=== PATIENT | male | born 1935 | race Caucasian/White ===

== ENCOUNTER 2020-01-22 15:45 | Inpatient (IN) | payer OTHER, MEDICAID, SELFPAY ==
[~2020-01-22] VITALS: Ht 172.7 cm; Wt 81.6 kg
[2020-01-22 16:20] VITALS: BP 130/71
--- NOTE | 2020-01-22 16:40 | NUR ---
pt taken to bed 4
--- NOTE | 2020-01-22 16:42 | NUR ---
pt placed on pulse ox and 3 lead ecg
--- NOTE | 2020-01-22 16:57 | NUR ---
dr. aranda at bedside.
--- NOTE | 2020-01-22 17:05 | NUR ---
84 Y/M PRESENTS TO ED WITH GRANDSON. PER GRANDSON PT HAS BEEN FATIGUED, REPORTS DECREASED APPETITE AND SOB X 2 DAY. PT HAS MILD COUGH AT BASELINE, DENIES FEVER OR COVID POSITIVE CONTACTS. NO PAIN. PT RR EVEN AND UNLABORED. PT SATTING 93% ON RA, PT PLACED ON 4L NC AND O2-95%. ABD SOFT, BS ACTIVE X 4. HX- CVA, HTN, HLD fatigue, deacreased appetite.
--- NOTE | 2020-01-22 17:19 | NUR ---
FLU, RSV AND NOVEL ANDERSON SWAB COLLECTED.
[2020-01-22 17:45] LABS: BASOPHILS # (AUTO) 0.1 K/uL (0.00-0.22); BASOPHILS % (AUTO) 1.2 % (0.0-2.0); HEMATOCRIT 45.3 % (36-52); HEMOGLOBIN 15.2 g/dL (12.0-18.0); LYMPHOCYTES # (AUTO) 0.8 K/uL (2.0-11.5); LYMPHOCYTES % (AUTO) 6.8 % (20.5-51.1); MEAN CORPUSCULAR HEMOGLOBIN 30 pg (27-31); MEAN CORPUSCULAR HGB CONC 34 g/dL (33-37); MEAN CORPUSCULAR VOLUME 90.3 fL (80-94); MONOCYTES # (AUTO) 1.3 K/uL (0.8-1.0); MONOCYTES % (AUTO) 10.5 % (1.7-9.3); NEUTROPHILS # (AUTO) 9.8 K/uL (1.8-7.7); NEUTROPHILS % (AUTO) 81.5 % (42.2-75.2); PLATELET COUNT (AUTO) 205 K/uL (140-450); RED BLOOD CELL COUNT(AUTO) 5.02 MIL/uL (4.20-6.10); RED CELL DISTRIBUTION WIDTH 13.8 % (11.6-13.7)
[2020-01-22 17:47] LABS: ALBUMIN 3.3 g/dL (3.4-5.0); ANION GAP 20.2 (8-16); ASPARTATE AMINOTRANSFERASE 19 U/L (15-37); CARBON DIOXIDE 20.1 mmol/L (21-32); CHLORIDE 104 mmol/L (98-107); CREATININE 2.1 mg/dL (0.6-1.3); GLUCOSE 138 mg/dL (74-106); POTASSIUM 4.3 mmol/L (3.5-5.1); SODIUM SERUM 140 mmol/L (136-145); TOTAL BILIRUBIN 1.2 mg/dL (0.0-1.0); UREA NITROGEN, BLOOD 36 mg/dL (7-18)
[2020-01-22 17:53] LABS: RSV NEGATIVE (NEGATIVE)
[2020-01-22 17:54] LABS: PROTHROMBIN TIME 10.9 secs (10.8-13.4)
--- NOTE | 2020-01-22 18:07 | NUR ---
URINE COLLECTED AND GIVEN TO TUGBOAT CAPTAIN.
--- NOTE | 2020-01-22 18:11 | NUR ---
PT REPOSITIONED IN BED, ALL NEEDS MET AT THIS TIME.
[2020-01-22] MEDS ORDERED: OSELTAMIVIR PHOSPHATE 75 MG CAP PO ONE (18:20)
[2020-01-22 18:24] LABS: LACTATE DEHYDROGENASE 188 U/L (85-227)
[2020-01-22 18:25] LABS: APPEARANCE,URINE SL CLOUDY (CLEAR); BILIRUBIN,URINE NEGATIVE (NEGATIVE); BLOOD, URINE 3+ (NEGATIVE); COLOR,URINE YELLOW (YELLOW); LEUKOCYTE ESTERASE ,URINE 3+ (NEGATIVE); NITRITE, URINE NEGATIVE (NEGATIVE); UGLUCOSE NEGATIVE (NEGATIVE)
--- NOTE | 2020-01-22 18:29 | NUR ---
RT AT BEDSIDE.
[2020-01-22] MEDS ORDERED: MORPHINE SULFATE 2 MG/ML SYR IVP PRN (18:30)
[2020-01-22] MEDS ORDERED: ACETAMINOPHEN 325 MG TAB PO PRN (18:30)
[2020-01-22] MEDS ORDERED: DOCUSATE SODIUM 100 MG GELCAP PO PRN (18:30)
[2020-01-22] MEDS ORDERED: HYDROcodone/APAP 5/325 MG 1 TAB TAB PO PRN (18:30)
[2020-01-22] MEDS ORDERED: ONDANSETRON 4 MG/2 ML VIAL IM/IVP PRN (18:30)
--- NOTE | 2020-01-22 19:11 | NUR ---
RECEIVED REPORT FROM CASS KUMAR
[2020-01-22 19:14] LABS: MAGNESIUM 1.9 mg/dL (1.8-2.4); PHOSPHORUS 2.3 mg/dL (2.5-4.9); THYROID STIMULATING HORMONE 2.86 uIU/mL (0.34-3.74)
[2020-01-22] MEDS ORDERED: [UNRECOGNIZED DRUG - CODE] PO (19:18)
[2020-01-22] MEDS ORDERED: POTA10CE85 PO (19:18)
[2020-01-22] MEDS: NACL 0.9% 1,000 ML IV SCH (19:18)
--- NOTE | 2020-01-22 19:19 | NUR ---
Pt report given to JOSÉ BLAND. Transfer of care at this time.
[2020-01-22] MEDS ORDERED: SIMV40TA1 PO (19:21)
[2020-01-22] MEDS ORDERED: FURO-572 PO (19:21)
[2020-01-22] MEDS ORDERED: TAMS0.4C96 PO (19:21)
[2020-01-22] MEDS ORDERED: AMLO10TA PO (19:21)
[2020-01-22] MEDS ORDERED: AZITHROMYCIN 500 MG in DEXTROSE 5% 250 ML IV SCH (19:25)
[2020-01-22 19:28] LABS: RBC,URINE 50-80 /HPF (0-5); WBC,URINE 16-25 (MOD) /HPF (0-5)
--- NOTE | 2020-01-22 20:26 | NUR ---
PT CURRENTLY TELE HOLD, PROVIDED PT WITH SANDWICH
[2020-01-22] MEDS ORDERED: SODIUM PHOS / POTASSIUM PHOS 1 PKT PDR PO SCH (20:50)
--- NOTE | 2020-01-23 00:50 | NUR ---
ADMITTED 84 Y/O MALE FROM E.. VIA [facility]. PATIENT IS AWAKE, ALERT. ENGLISH SPEAKING. ABLE TO MAKE NEEDS KNOWN. RESPIRATION EVEN AND UNLABORED. DENIES PAIN. ASSESSMENT DONE. NOTED LFA 20G. INTACT AND PATENT. MRSA SWAB DONE. V/S TAKEN. OBSERVED DROPLET PRECAUTION ISOLATION FOR R/O COVID 19. FALL RISK PROTOCOL IN PLACE. PLAN OF CARE WAS DISCUSSED. CALL LIGHT WITHIN REACH. WILL CONTINUE TO MONITOR.
--- NOTE | 2020-01-23 01:00 | NUR ---
Patient will be admitted to care of DR VALLEJO. Admited to TELE. Will go to room 116. Belongings list completed. Report to AZUL KUMAR.
[2020-01-23] MEDS ORDERED: cefTRIAXone 1,000 MG VIAL ONE (01:33)
[2020-01-23] MEDS: SIMVASTATIN 40 MG TAB PO SCH ×2 (01:44→20:04)
--- NOTE | 2020-01-23 02:00 | NUR ---
TRIED TO USE THE TIN WORKER PHONE TO TRANSLATE FAROESE TO TAMAZIGHT BUT THERE IS NO SIGNAL IN THE PATIENT'S ROOM. I WENT TO THE NURSES STATION TO CALL AGAIN AND I WALKED BACK TO PATIENT'S ROOM AND THE SIGNAL WAS CHOPPY ON THE HALLWAY. TRIED TO CONTACT THE NEXT OF KIN/RESPONSIBLE LIBERTARIAN ON THE PATIENT'S FACE SHEET BUT UNABLE TO CONTACT. CHARGE NURSE NUHA AWARE. BASED PATIENT'S HX ON MED. RECORD IN COMP.
[2020-01-23 04:00] VITALS: BP 142/65
--- NOTE | 2020-01-23 04:00 | NUR ---
V/S TAKEN AND RECORDED. KEPT CLEAN, DRY AND COMFORTABLE.
--- NOTE | 2020-01-23 07:00 | NUR ---
PATIENT IS IN STABLE CONDITION. NO DISTRESS NOTED. DENIES PAIN. NO SOB. WILL ENDORSE TO AM SHIFT RN FOR CONTINUITY OF CARE.
--- NOTE | 2020-01-23 07:25 | NUR ---
RECEIVED BEDSIDE SHIFT REPORT FRM HISTORY FACULTY MEMBER NURSE FOR CONTINUATION OF CARE.
[2020-01-23 08:00] VITALS: BP 145/71
[2020-01-23] MEDS ORDERED: COMMUNICATION ORDER MC SCH (09:00)
[2020-01-23] MEDS: POTASSIUM CHLORIDE 10 MEQ TABER PO SCH (09:00)
[2020-01-23] MEDS ORDERED: OSELTAMIVIR PHOSPHATE 75 MG CAP PO SCH (09:00)
--- NOTE | 2020-01-23 09:00 | NUR ---
TOLERATED MEDICATION PASS, RESTING IN BED, DENIES PAIN. AAOX4, EDUCATED LAV CREWMAN LIGHT, VERBALIZED UNDERSTANDING. WILL CONTINUE TO MONITOR
--- NOTE | 2020-01-23 09:25 | NUR ---
PATIENT HAS BEEN SCREENED AND CATEGORIZED MODERATE NUTRITION RISK. PATIENT WILL BE SEEN WITHIN 3-5 DAYS OF ADMISSION. 01/25/2020-01/27/[address]
[2020-01-23] MEDS: FUROSEMIDE 20 MG TAB PO SCH (09:51)
[2020-01-23] MEDS: amLODIPine 5 MG TAB PO SCH (09:51)
[2020-01-23] MEDS: LOSARTAN 50 MG TAB PO SCH (09:51)
[2020-01-23] MEDS: TAMSULOSIN 0.4 MG CAP PO SCH (09:51)
[2020-01-23] MEDS: NACL 0.9% 1,000 ML IV SCH (10:38)
[2020-01-23 10:40] LABS: BASOPHILS % (AUTO) 0.2 % (0.0-2.0); HEMATOCRIT 41.9 % (36-52); LYMPHOCYTES # (AUTO) 1.5 K/uL (2.0-11.5); LYMPHOCYTES % (AUTO) 7.8 % (20.5-51.1); MEAN CORPUSCULAR HEMOGLOBIN 30 pg (27-31); MEAN CORPUSCULAR HGB CONC 34 g/dL (33-37); MEAN CORPUSCULAR VOLUME 90.4 fL (80-94); MONOCYTES # (AUTO) 1.1 K/uL (0.8-1.0); MONOCYTES % (AUTO) 5.9 % (1.7-9.3); NEUTROPHILS # (AUTO) 16.1 K/uL (1.8-7.7); NEUTROPHILS % (AUTO) 86.1 % (42.2-75.2); PLATELET COUNT (AUTO) 188 K/uL (140-450); RED BLOOD CELL COUNT(AUTO) 4.63 MIL/uL (4.20-6.10); RED CELL DISTRIBUTION WIDTH 14.2 % (11.6-13.7); WHITE BLOOD COUNT (AUTO) 18.8 K/uL (4.8-10.8)
[2020-01-23 10:48] LABS: ANION GAP 18.2 (8-16); CARBON DIOXIDE 18.5 mmol/L (21-32); CHLORIDE 106 mmol/L (98-107); CREATININE 1.7 mg/dL (0.6-1.3); GLUCOSE 233 mg/dL (74-106); POTASSIUM 3.7 mmol/L (3.5-5.1); SODIUM SERUM 139 mmol/L (136-145); UREA NITROGEN, BLOOD 31 mg/dL (7-18)
--- NOTE | 2020-01-23 11:03 | NUR ---
RESTING IN BED, CALL LIGHT ON, DENIES PAIN. WILL CONTINUE TO MONITOR.
[2020-01-23 12:00] VITALS: BP 138/73
--- NOTE | 2020-01-23 13:00 | NUR ---
OBSERVED PATIENT RESTING IN BED WATCHING TV, TOLERATED LUNCH. WILL CONTINUE TO MONITOR.
[2020-01-23 13:33] LABS: CHOL/HDL RATIO 2.8 (1-4.5); MAGNESIUM 1.8 mg/dL (1.8-2.4); PHOSPHORUS 2.6 mg/dL (2.5-4.9)
[2020-01-23 16:00] VITALS: BP 137/56
--- NOTE | 2020-01-23 16:19 | NUR ---
RESTING IN BED, NO SIGNS OF DISTRESS NOTED. WILL CONTINUE TO MONITOR.
--- NOTE | 2020-01-23 19:23 | NUR ---
BEDSIDE SHIFT REPORT GIVEN TO HOSPITAL CLINIC ASSISTANT NURSE FOR CONTINUATION OF CARE.
--- NOTE | 2020-01-23 19:24 | NUR ---
RECD. SITTING ON BED, AWAKE, A/OX2, EATING DINNER. RESPIRATION EVEN AND UNLABORED. IV OF NS AT 60 ML/HR INFUSING, RIGHT FOREARM G20. WITH OCCASIONAL UNPRODUCTIVE COUGHING, 02 SAT 93% ON ROOM AIR. SAFETY MEASURES ENFORCED. BED IN THE LOWEST POSITION, BED ON ALARM, CALL LIGHT IN REACH. PLAN OF CARE FOR THE SHIFT DISCUSSED. NEEDS REINFORCEMENT. DENIES PAIN 0/10.
[2020-01-23 20:00] VITALS: BP 127/55
[2020-01-23] MEDS: OSELTAMIVIR PHOSPHATE 30 MG CAP PO SCH (20:04)
--- NOTE | 2020-01-23 20:05 | NUR ---
TEMPERATURE CHECKED - 101.7, MEDICATED WITH TYLENOL PER MD ORDER. COOLING MEASURES GIVEN.
--- NOTE | 2020-01-23 20:47 | NUR ---
FRANCISCO JAVIERPB ABX HUNG, AND RUNNING PER ORDERS.
--- NOTE | 2020-01-23 21:00 | NUR ---
SNACK GIVEN FOR THE NIGHT.
--- NOTE | 2020-01-23 21:28 | NUR ---
PT COMFORTABLY ASLEEP NO DISTRESS NOTED PT SAT 95% ON RA
--- NOTE | 2020-01-23 21:30 | NUR ---
NO FEVER NOTED, TEMP - 98.5 F. RESTING IN BED COMFORTABLY.
--- NOTE | 2020-01-23 22:35 | NUR ---
INSURANCE CONSULTANT ARCO CONCERNED WITH HR OF PATIENT IN THE LOW SIDE, 47. CHECKED PATIENT SLEEPING ON THE LEFT SIDE. REPOSITIONED AND HOB ELEVATED 35 DEGREES, HR WENT UP TO 52. 02 SAT -94 % ON ROOM AIR, NO SOB NOTED.
--- NOTE | 2020-01-23 23:00 | NUR ---
COMPLAINED OF FEELING COLD IN THE LOWER EXTREMITIES. TEMPERATURE CHECKED - 99.0. WARM BLANKET GIVEN.
[2020-01-24] VITALS: BP 103/43
--- NOTE | 2020-01-24 01:30 | NUR ---
SLEEPING COMFORTABLY IN BED.
--- NOTE | 2020-01-24 01:58 | NUR ---
Patient's Plan of Care was discussed and reviewed with AMIRA: KOREY.
--- NOTE | 2020-01-24 02:50 | NUR ---
SLEEPING ON HIS RIGHT SIDE, 02 SAT - 96%. NO DISTRESS NOTED. PUT ON WARM BLANKET.
[2020-01-24] MEDS: NACL 0.9% 1,000 ML IV SCH (03:47)
--- NOTE | 2020-01-24 04:30 | NUR ---
STILL SLEEPING COMFORTABLY, VS STABLE.
--- NOTE | 2020-01-24 06:59 | NUR ---
CONDITION REMAIN STABLE. ENDORSED TO AM SHIFT NURSE FOR CONTINUITY OF CARE.
--- NOTE | 2020-01-24 07:00 | NUR ---
RECEIVED PATIENT FROM ADMINISTRATIVE SUPPORT TECHNICIAN NURSE. PT IS CURRENTLY SLEEPING IN BED. RESPIRATIONS ARE EVEN AND UNLABORED ON ROOM AIR WITH NO SIGNS OF DISTRESS. SKIN IS INTACT WITH IV ASYMPTOMATIC PATENT AND INFUSING PER ORDER. BED IS IN LOW SEMI-FOWLERS POSITION, SAFETY MEASURES IN PLACE AND WILL CONTINUE OT MONITOR.
[2020-01-24 07:09] LABS: MAGNESIUM 1.9 mg/dL (1.8-2.4); PHOSPHORUS 2.8 mg/dL (2.5-4.9)
[2020-01-24 07:38] LABS: HEMATOCRIT 39.9 % (36-52); HEMOGLOBIN 13.3 g/dL (12.0-18.0); MEAN CORPUSCULAR HEMOGLOBIN 30 pg (27-31); MEAN CORPUSCULAR HGB CONC 33 g/dL (33-37); MEAN CORPUSCULAR VOLUME 91.3 fL (80-94); PLATELET COUNT (AUTO) 190 K/uL (140-450); RED BLOOD CELL COUNT(AUTO) 4.37 MIL/uL (4.20-6.10); RED CELL DISTRIBUTION WIDTH 14.2 % (11.6-13.7); WHITE BLOOD COUNT (AUTO) 24.3 K/uL (4.8-10.8)
[2020-01-24 07:51] LABS: ANION GAP 17.1 (8-16); CARBON DIOXIDE 17.7 mmol/L (21-32); CHLORIDE 106 mmol/L (98-107); CREATININE 1.7 mg/dL (0.6-1.3); GLUCOSE 113 mg/dL (74-106); POTASSIUM 3.8 mmol/L (3.5-5.1); SODIUM SERUM 137 mmol/L (136-145); UREA NITROGEN, BLOOD 30 mg/dL (7-18)
[2020-01-24 08:00] VITALS: BP 109/64
[2020-01-24] MEDS: TAMSULOSIN 0.4 MG CAP PO SCH (08:20)
[2020-01-24] MEDS: OSELTAMIVIR PHOSPHATE 30 MG CAP PO SCH ×2 (08:21→21:35)
[2020-01-24] MEDS: amLODIPine 5 MG TAB PO SCH (08:21)
[2020-01-24] MEDS: FUROSEMIDE 20 MG TAB PO SCH (08:21)
[2020-01-24] MEDS: POTASSIUM CHLORIDE 10 MEQ TABER PO SCH (08:21)
[2020-01-24] MEDS: LOSARTAN 50 MG TAB PO SCH (08:22)
--- NOTE | 2020-01-24 08:35 | NUR ---
ADMINISTERED MEDICATIONS PER ORDER AND TOLERATED WELL. PT IS CURRENTLY SITTING UP IN BED WATCHING TV WITH NO SIGNS OF DISTRESS. BREAKFAST IS AT BEDSIDE, SAFETY MEASURES IN PLACE AND WILL CONTINUE TO MONITOR.
[2020-01-24 09:01] LABS: LYMPHOCYTES % (MANUAL) 12 % (20-46); MONOCYTES % (MANUAL) 7 % (5-12)
--- NOTE | 2020-01-24 09:45 | NUR ---
PT IS CURRENTLY FINISHING UP BREAKFAST WITH NO SIGNS OF DISTRESS AT THIS TIME. SAFETY MEASURES IN PLACE. PT DOES NOT COMPLAIN OF ANY PAIN AT THIS TIME, WILL CONTINUE TO MONITOR.
--- NOTE | 2020-01-24 11:15 | NUR ---
PT IS CURRENTLY SLEEPING IN BED WITH NO SIGNS OF DISTRESS. SAFETY MEASURES IN PLACE AND WILL CONTINUE TO MONITOR.
[2020-01-24 12:00] VITALS: BP 123/38
--- NOTE | 2020-01-24 13:16 | NUR ---
PT I CURRENTLY SITTING UP IN BED ABOUT TO EAT LUNCH. NO COMPLAINTS OF PAIN OR SIGNS OF DISTRESS AT THIS TIME. SAFETY MEASURES IN PLACE AND WILL CONTINUE TO MONITOR.
--- NOTE | 2020-01-24 15:06 | NUR ---
PT IS CURRENTLY SITTING IN BED SPEAKING WITH GRANDSON FROM PHONE IN THE ROOM. PT DOES NOT COMPLAIN OF PAIN AT THIS TIME. DR. HILL CAME TO SEE PT AND PT HAD NO FURTHER QUESTIONS. SAFETY MEASURES IN PLACE AND WILL CONTINUE MONITOR.
[2020-01-24 16:00] VITALS: BP 154/52
[2020-01-24] MEDS ORDERED: AZITHROMYCIN 250 MG TAB PO ONE (16:15)
--- NOTE | 2020-01-24 17:32 | NUR ---
PT IS CURRENTLY SITTING IN BED WITH NO SIGNS OF DISTRESS AT THIS TIME. DR. WALKER CAME TO SEE PATIENT. PT STATED THAT HE WANTED THE LIGHTS IN HIS ROOM OFF. SAFETY MEASURES IN PLACE AND WILL CONTINUE TO MONITOR.
--- NOTE | 2020-01-24 18:41 | NUR ---
PT IS CURRENTLY EATING DINNER AT BEDSIDE WITH NO SIGNS OF DISTRESS AT THIS TIME. SAFETY MEASURES IN PLACE AND WILL CONTINUE TO MONITOR, WILL ENDORSE TO HEALTH EDUCATION TEACHER NURSE FOR CONTINUITY OF CARE.
--- NOTE | 2020-01-24 19:28 | NUR ---
RECEIVED PT AAOX1 , AWAKE , CAN FOLLOW SIMPLE COMMAND . IV SITE INTACT AND PATENT , ON TELE MONITOR , NID - O2 SAT WNL . DENIES ANY PAIN . SAFETY MEASURES IN PLACE - CALL LIGHT WITHIN REACH . PLAN OF CARE DISCUSSED BUT VERBALIZE POOR UNDERSTANDING DUE TO MENTAL STATUS - NEEDS REINFORCEMENT FROM TIME TO TIME . WILL CONT. TO MONITOR.
--- NOTE | 2020-01-24 19:40 | NUR ---
RECEIVED REPORT FROM AM SHIFT. PT SEEN AND ASSESSED. FOUND PT ON ROOM AIR WITH SPO2 OF 96%. RALES BREATH SOUNDS ON AUSCULTATION. NOTICED ADEQUATE BILATERAL CHEST RISE AND AND FALL. PT IS IN NO APPARENT RESPIRATORY DISTRESS AT THIS TIME AND NO C/O SOB. WILL CONTINUE TO MONITOR PT.
[2020-01-24 20:00] VITALS: BP 140/90
[2020-01-24] MEDS: SIMVASTATIN 40 MG TAB PO SCH (21:35)
--- NOTE | 2020-01-24 22:00 | NUR ---
RESTING ON BED COMFORTABLY . NO COMPLAIN MADE .
[2020-01-25] VITALS: BP 136/63
--- NOTE | 2020-01-25 | NUR ---
MADE ROUNDS , NO S/SX OF ACUTE DISTRESS NOTED AT THIS TIME , WILL CONT. TO MONITOR.
--- NOTE | 2020-01-25 02:00 | NUR ---
SLEEPING - CHEST RISE AND FALL EQUALLY - ON TELE MONITOR. WILL CONT. TO MONITOR.
[2020-01-25 04:00] VITALS: BP 133/59
--- NOTE | 2020-01-25 04:00 | NUR ---
MADE ROUNDS . NO S/SX OF ACUTE DISTRESS NOTED AT THIS TIME , CALL LIGHT WITHIN REACH.
--- NOTE | 2020-01-25 06:00 | NUR ---
RESTING ON BED COMFORTABLY - O2 AST WNL .
[2020-01-25 06:50] LABS: ANION GAP 14.8 (8-16); CARBON DIOXIDE 19.2 mmol/L (21-32); CHLORIDE 106 mmol/L (98-107); CREATININE 1.5 mg/dL (0.6-1.3); GLUCOSE 103 mg/dL (74-106); SODIUM SERUM 136 mmol/L (136-145); UREA NITROGEN, BLOOD 30 mg/dL (7-18)
[2020-01-25 07:00] LABS: BASOPHILS % (AUTO) 0.4 % (0.0-2.0); EOSINOPHILS % (AUTO) 0.2 % (0.0-4.0); HEMATOCRIT 40.5 % (36-52); HEMOGLOBIN 13.6 g/dL (12.0-18.0); LYMPHOCYTES # (AUTO) 1.4 K/uL (2.0-11.5); LYMPHOCYTES % (AUTO) 12.1 % (20.5-51.1); MEAN CORPUSCULAR HEMOGLOBIN 30 pg (27-31); MEAN CORPUSCULAR HGB CONC 34 g/dL (33-37); MEAN CORPUSCULAR VOLUME 90.6 fL (80-94); MONOCYTES # (AUTO) 0.8 K/uL (0.8-1.0); MONOCYTES % (AUTO) 6.7 % (1.7-9.3); NEUTROPHILS # (AUTO) 9.1 K/uL (1.8-7.7); NEUTROPHILS % (AUTO) 80.6 % (42.2-75.2); PLATELET COUNT (AUTO) 208 K/uL (140-450); RED BLOOD CELL COUNT(AUTO) 4.47 MIL/uL (4.20-6.10); RED CELL DISTRIBUTION WIDTH 14.1 % (11.6-13.7); WHITE BLOOD COUNT (AUTO) 11.3 K/uL (4.8-10.8)
--- NOTE | 2020-01-25 07:20 | NUR ---
RECEIVED REPORT FROM NIGHT NURSE FOR CONTINUITY OF CARE, PT IS STABLE , PT HAS RIGHT FA 24G INFUSING NS AT 60 ML/H, RESPIRATIONS ARE EVEN AND UNLABORED ON ROOM AIR, BED IN LOW POSITION, CALL LIGHT WITHIN REACH, ALL NEEDS MET AT THIS TIME, WILL INTRODUCE SELF.
--- NOTE | 2020-01-25 07:29 | NUR ---
ENDORSED TO AM SHIFT - PT - STABLE .
[2020-01-25 08:00] VITALS: BP 156/56
[2020-01-25 08:42] LABS: MAGNESIUM 1.7 mg/dL (1.8-2.4); PHOSPHORUS 2.1 mg/dL (2.5-4.9)
[2020-01-25] MEDS ORDERED: AZITHROMYCIN 250 MG TAB PO SCH (09:00)
[2020-01-25] MEDS: NACL 0.9% 1,000 ML IV SCH ×2 (09:33→12:52)
[2020-01-25] MEDS: VITAMIN D 400 IU TAB PO SCH (09:36)
[2020-01-25] MEDS: DEXAMETHASONE 4 MG/ML VIAL IVP SCH (09:36)
[2020-01-25] MEDS: LOSARTAN 50 MG TAB PO SCH (09:37)
[2020-01-25] MEDS: TAMSULOSIN 0.4 MG CAP PO SCH (09:37)
[2020-01-25] MEDS: POTASSIUM CHLORIDE 10 MEQ TABER PO SCH (09:37)
[2020-01-25] MEDS: amLODIPine 5 MG TAB PO SCH (09:38)
[2020-01-25] MEDS: FUROSEMIDE 20 MG TAB PO SCH (09:38)
[2020-01-25] MEDS: ASCORBIC ACID 500 MG TAB PO SCH (09:39)
[2020-01-25] MEDS: OSELTAMIVIR PHOSPHATE 30 MG CAP PO SCH ×2 (09:39→21:58)
[2020-01-25] MEDS: ZINC SULF 220 MG CAP PO SCH (09:40)
--- NOTE | 2020-01-25 09:53 | NUR ---
ADMINISTERED SCHEDULED MEDICATION, MEDICATION EDUCATION GIVEN, PT VERBALIZED UNDERSTANDING, PT IS STABLE, PT TOLERATED WELL, CALL LIGHT WITHIN REACH.
--- NOTE | 2020-01-25 11:30 | NUR ---
PT RESTING IN BED WATCHING TV, NO SIGNS OF DISTRESS NOTED, RESPIRATIONS ARE EVEN AND UNLABORED ON ROOM AIR, CALL LIGHT WITHIN REACH.
[2020-01-25 12:00] VITALS: BP 132/59
--- NOTE | 2020-01-25 13:05 | NUR ---
PT RESTING IN BED, NO SIGNS OF DISTRESS NOTED, RESPIRATIONS ARE EVEN AND UNLABORED ON ROOM AIR, BED IN LOW POSITION CALL LIGHT WITHIN REACH,
--- NOTE | 2020-01-25 14:18 | NUR ---
DC PLANNIN YRS OLD MALE PATIENT WAS ADMITTED FROM HOME WITH A DX OF PNEUMONIA, INFLUENZA B POSITIVE AND R/O COVID 19 . PATIENT HAS A HX OF CVA, HTN, HYDROCEPHALUS WITH VENTRICULOPERITONEAL SHUNT, AND BPH. STARTED ON TAMIFLU, DECADRON ,ROCEPHIN AND AZITHROMYCIN. CONSULTED WITH ID AND PULMO AND CONTINUE WITH CURRENT THERAPY. RECEIVED A CALL FROM ANTHONY COLEY AT [facility] REGARDING DC PLAN TO TRANSFER TO THE CONTRACTED FACILITIES.PER ANTHONY NO NEED TO TRANSFER PT TO ANOTHER HOSPITAL UNLESS ANY PLAN TO DO INVASIVE PROCEDURE. EXPLAIN TO SUDHA THAT PT IS NOT STABLE TO GO HOME, NEEDS TO STAY FOR IV ABX FOR PNEUMONIA AND UTI. PER ANTHONY CASAS TO STAT AT [facility]. BRIJESH TO FOLLOW. Addendum: 01/26/20 at 1214 by Aura Tatum CM DC PLANNING: PT HAS A DC ORDER TO GO TO SNF FOR PHYSICAL THERAPY. FAXED TO [facility] BRIJESH CRUZ.CALLED MICHAEL PHYSICAL THERAPIST TO EVALUATE PATIENT. PER MICHAEL ESTES WILL BE IN THE AFTERNOON TO SEE PATIENT. CM TO FOLLOW Addendum: 01/26/20 at 1510 by Aura Tatum CM DC PLANNING [facility] ACCEPTED PATIENT, CAN GO TO ROOM 30A # TO GIVE REPORT [phone] RN LVN TIME 5PM NOTIFIED RENETTA CHARGE NURSE Addendum: 01/26/20 at 1611 by Aura Tatum CM DC PLANNING PER [facility] MORE [phone] THE CONTRACTED TRANSPORT COMPANIES ARE [facility] AND [facility] PER KIM NOLEN IS BOOKED FOR TODAY THE EARLIEST RN LVN TIME IS TOMORROW 01/27/20 AT 1 PM . I REQUESTED KIM TO GIVE AUTHORIZATION FOR OTHER TRANSPORT PER KIM UNABLE TO GIVE AUTH FOR OTHER TRANSPORT COMPANIES. AND STATED WILL COVER THE STAY AT [facility]. NOTIFIED ESA JOHN PAUL AND WILL HOLD THE BED FOR TOMORROW. Addendum: 01/27/20 at 1154 by Aura Tatum CM DC PLANNING: RECEIVED A CALL FROM [facility] SPOKE WITH ANTHONY COLEY STATED PT WILL BE PICKED UP BY AT 1PM. CLARIFIED WITH ANTHONY THAT THE STAY AT THE HOSPITAL WILL BE APPROVED PER ANTHONY IT'S ALL DOCUMENTED WONT PROVIDE THE HARD COPY. AND [facility] WILL APPROVE THE STAY AT [facility]. BRIJESH TO FOLLOW
[2020-01-25 16:00] VITALS: BP 132/57
--- NOTE | 2020-01-25 18:56 | NUR ---
ADMINISTERED SCHEDULED MEDICATION, MEDICATION EDUCATION GIVEN, PT VERBALIZED UNDERSTANDING, PT IS STABLE, NO SIGNS OF DISTRESS NOTED, RESPIRATIONS ARE EVEN AND UNLABORED ON ROOM AIR, CALL LIGHT WITHIN REACH.
--- NOTE | 2020-01-25 19:25 | NUR ---
GAVE REPORT TO NIGHT NURSE FOR CONTINUITY OF CARE, PT IS STABLE
--- NOTE | 2020-01-25 19:30 | NUR ---
RECEIVED ENDORSEMENT FROM AM SHIFT RN. PATIENT IS IN BED. NO SOB. DENIES PAIN. ASSESSMENT DONE. NOTED RFA IV SITE INTACT WITH INFUSING IVF AT 60 CC/HR. TELE MONITOR ATTACHED. FALL RISK PROTOCOL IN PLACE. DROPLET ISOLATION PRECAUTION OBSERVED AT ALL TIMES. PLAN OF CARE WAS DISCUSSED. CALL LIGHT WITHIN REACH. WILL CONTINUE TO MONITOR.
[2020-01-25 20:00] VITALS: BP 146/60
[2020-01-25] MEDS: SIMVASTATIN 40 MG TAB PO SCH (21:58)
--- NOTE | 2020-01-25 21:58 | NUR ---
DUE MEDS GIVEN ORDERED. TOLERATED WELL. MED EDUCATION PROVIDED.
[2020-01-26] VITALS (7 sets, daily range): BP systolic 125–158; BP diastolic 45–64
--- NOTE | 2020-01-26 | NUR ---
V/S TAKEN AND RECORDED. NO SOB. DENIES PAIN.
--- NOTE | 2020-01-26 02:14 | NUR ---
PT SPO2 91 ON RA NO DISTRESS NOTED
[2020-01-26] MEDS: NACL 0.9% 1,000 ML IV SCH ×2 (02:20→22:29)
--- NOTE | 2020-01-26 02:53 | NUR ---
RFA IV LINE DISLODGED. REINSERTED A NEW IV CANNULA G22 TO RH, ATTEMPTED X1 WITH GOOD BLOOD RETURN. TOLERATED PROCEDURE WELL. SECURED SITE AND WRAPPED.
--- NOTE | 2020-01-26 04:30 | NUR ---
V/S TAKEN. KEPT CLEAN, DRY AND COMFORTABLE. NO SOB.
--- NOTE | 2020-01-26 06:54 | NUR ---
PATIENT IS STABLE. ENDORSED TO AM SHIFT RN FOR CONTINUITY OF CARE.
--- NOTE | 2020-01-26 07:00 | NUR ---
RECEIVED REPORT FROM CLERK TYPIST NURSE REGARDING PATIENT CONDITION AND PLAN OF CARE. PATIENT IN NO S/S RESPIRATORY DISTRESS, NO C/O OF PAIN AT THIS TIME. DROPLET AND FALL PRECAUTIONS ADHERED TO. ALL NEEDS MET, WILL CONTINUE TO MONITOR.
--- NOTE | 2020-01-26 07:56 | NUR ---
DR DUARTE AND THE RESIDENTS MADE ROUNDS.
[2020-01-26 08:08] LABS: ALBUMIN 2.2 g/dL (3.4-5.0); ANION GAP 14.8 (8-16); ASPARTATE AMINOTRANSFERASE 28 U/L (15-37); CARBON DIOXIDE 17.6 mmol/L (21-32); CHLORIDE 104 mmol/L (98-107); CREATININE 1.4 mg/dL (0.6-1.3); GLUCOSE 121 mg/dL (74-106); LACTATE DEHYDROGENASE 152 U/L (85-227); POTASSIUM 4.4 mmol/L (3.5-5.1); SODIUM SERUM 132 mmol/L (136-145); TOTAL BILIRUBIN 0.3 mg/dL (0.0-1.0); UREA NITROGEN, BLOOD 27 mg/dL (7-18)
[2020-01-26] MEDS: LOSARTAN 50 MG TAB PO SCH (08:38)
[2020-01-26] MEDS: TAMSULOSIN 0.4 MG CAP PO SCH (08:39)
[2020-01-26] MEDS: OSELTAMIVIR PHOSPHATE 30 MG CAP PO SCH ×2 (08:39→20:05)
[2020-01-26] MEDS: amLODIPine 5 MG TAB PO SCH (08:39)
[2020-01-26] MEDS: FUROSEMIDE 20 MG TAB PO SCH (08:39)
--- NOTE | 2020-01-26 08:39 | NUR ---
PT ALERT, ORIENTED X 2-3, EATING BREAKFAST. MEDICATIONS GIVEN, HEPARIN GIVEN, LAST PLATELET WAS 208, HEAD TO TOE ASSESSMENT DONE. NO SIGNS OF RESPIRATORY DISTRESS, NO COMPLAINTS OF PAIN AT THIS TIME. UNIVERSAL FALL AND DROPLET PRECAUTIONS FOLLOWED.
[2020-01-26] MEDS: ASCORBIC ACID 500 MG TAB PO SCH (08:40)
[2020-01-26] MEDS: VITAMIN D 400 IU TAB PO SCH (08:41)
[2020-01-26] MEDS: ZINC SULF 220 MG CAP PO SCH (08:41)
[2020-01-26] MEDS: POTASSIUM CHLORIDE 10 MEQ TABER PO SCH (08:42)
[2020-01-26] MEDS: DEXAMETHASONE 4 MG/ML VIAL IVP SCH (08:49)
--- NOTE | 2020-01-26 09:58 | NUR ---
GIVEN HEPARIN SUBQ IN THE RIGHT UPPER ARM. PLATELET 208. PATIENT TOLERATED WELL.
--- NOTE | 2020-01-26 12:26 | NUR ---
SPOKE WITH [employer]ASHIR SCALES, STATES THAT THEY ARE IN THE PROCESS OF ARRANGING MORTUARY, DECLINES CONTRACTED MORTUARY. DECLINES AUTOPSY. AWAITING CALL BACK FOR DETAILS REGARDING MORTUARY. Addendum: 01/26/20 at 1256 by Mayo Robles RN WRONG ENTRY/PATIENT. PLEASE DISREGARD.
--- NOTE | 2020-01-26 12:43 | NUR ---
PATIENT IS EATING LUNCH AT THIS TIME. NO SIGNS OF DISTRESS NOTED. BED IN LOW POSITION. CALL LIGHT IS WITHIN REACH. WILL CONTINUE TO MONITOR
--- NOTE | 2020-01-26 13:00 | NUR ---
ROUNDED ON PATIENT, NO S/S RESPIRATORY DISTRESS, NO COMPLAINTS OF PAIN AT THIS TIME. ALL NEEDS MET, CALL LIGHT WITHIN REACH, WILL CONTINUE TO MONITOR.
--- NOTE | 2020-01-26 14:30 | NUR ---
PATIENT IS ASLEEP. NO SIGNS OF DISTRESS NOTED. BED IN LOW POSITION. CALL LIGHT IS WITHIN REACH. WILL CONTINUE TO MONITOR.
--- NOTE | 2020-01-26 15:00 | NUR ---
ROUNDED ON PATIENT, NO S/S RESPIRATORY DISTRESS, NO COMPLAINTS OF PAIN AT THIS TIME. ALL NEEDS MET, CALL LIGHT WITHIN REACH, WILL CONTINUE TO MONITOR.
[2020-01-26] MEDS ORDERED: ROC2I IV (15:02)
[2020-01-26] MEDS ORDERED: TAM75 PO (15:02)
[2020-01-26] MEDS ORDERED: DEC4 PO (15:02)
[2020-01-26] MEDS ORDERED: APIX2.5 PO (15:11)
--- NOTE | 2020-01-26 16:01 | NUR ---
PER BRIJESH JOHNSON, PATIENT WILL BE TRANSFERRED TOMORROW. SHE STATED SHE WILL INFORM RESIDENT DOCTOR
--- NOTE | 2020-01-26 16:04 | NUR ---
P.T. NOTES P.T. EVAL COMPLETED; WILL BENEFIT W/ P.T. POST ACUTE STAY.
[2020-01-26 18:01] LABS: BASOPHILS # (AUTO) 0.2 K/uL (0.00-0.22); BASOPHILS % (AUTO) 1.5 % (0.0-2.0); EOSINOPHILS % (AUTO) 0.1 % (0.0-4.0); HEMATOCRIT 40.2 % (36-52); HEMOGLOBIN 13.4 g/dL (12.0-18.0); LYMPHOCYTES # (AUTO) 1.6 K/uL (2.0-11.5); LYMPHOCYTES % (AUTO) 15.3 % (20.5-51.1); MEAN CORPUSCULAR HEMOGLOBIN 31 pg (27-31); MEAN CORPUSCULAR HGB CONC 33 g/dL (33-37); MEAN CORPUSCULAR VOLUME 91.4 fL (80-94); MONOCYTES # (AUTO) 0.4 K/uL (0.8-1.0); NEUTROPHILS # (AUTO) 8.5 K/uL (1.8-7.7); NEUTROPHILS % (AUTO) 79.1 % (42.2-75.2); PLATELET COUNT (AUTO) 260 K/uL (140-450); RED CELL DISTRIBUTION WIDTH 14.2 % (11.6-13.7); WHITE BLOOD COUNT (AUTO) 10.8 K/uL (4.8-10.8)
--- NOTE | 2020-01-26 19:30 | NUR ---
RECEIVED BEDSIDE REPORT FROM DAY SHIFT NURSE. PATIENT IS IN BED. NO SOB. DENIES PAIN. IV SITE ON RH 22G PATENT, INTACT AND ASYMPTOMATIC. FALL RISK PROTOCOL IN PLACE. DROPLET ISOLATION PRECAUTION FOR COVID19 R/O. SKIN INTACT, WARM AND DRY TO TOUCH. PLAN OF CARE WAS DISCUSSED. CALL LIGHT WITHIN REACH. WILL CONTINUE TO MONITOR.
--- NOTE | 2020-01-26 19:39 | NUR ---
ENDORSED PATIENT TO THE SURFBOARD MAKER NURSE FOR CONTINUITY OF CARE. PATIENT IS IN STABLE CONDITION.
--- NOTE | 2020-01-26 19:55 | NUR ---
REPORTED TO RESIDENT DR FOR LAB RESULT, MAG 1.7, PHOSPHOROUS 2.1
[2020-01-26] MEDS: SIMVASTATIN 40 MG TAB PO SCH (20:05)
--- NOTE | 2020-01-26 20:06 | NUR ---
GIVEN TAMIFLU, ZOCOR, AND HEPARIN MD ORDERED. PT TOLERATED WELL.
--- NOTE | 2020-01-26 22:21 | NUR ---
PT SLEEPING IN BED COMFORTABLY. NO ACUTE DISTRESS NOTED.
[2020-01-27] VITALS: BP 147/48
--- NOTE | 2020-01-27 | NUR ---
VS WITHIN PT'S BASELINE. WILL CONTINUE TO MONITOR.
[2020-01-27] MEDS ORDERED: MAG SULF 2000 MG/WATER PREMIX 50 ML IV SCH (01:25)
[2020-01-27] MEDS ORDERED: SODIUM PHOS / POTASSIUM PHOS 1 PKT PDR PO SCH (01:25)
--- NOTE | 2020-01-27 01:48 | NUR ---
GIVEN PHOS-CYNDIE AND MAG GUERRERO MD ORDERED. PT TOLERATED WELL.
[2020-01-27 04:00] VITALS: BP 154/61
--- NOTE | 2020-01-27 04:04 | NUR ---
VS CHECKED, WITHIN PT'S BASELINE. WILL CONTINUE TO MONITOR.
[2020-01-27 07:16] LABS: BASOPHILS % (AUTO) 0.3 % (0.0-2.0); HEMATOCRIT 40.9 % (36-52); HEMOGLOBIN 13.7 g/dL (12.0-18.0); LYMPHOCYTES # (AUTO) 1.6 K/uL (2.0-11.5); LYMPHOCYTES % (AUTO) 10.6 % (20.5-51.1); MEAN CORPUSCULAR HEMOGLOBIN 30 pg (27-31); MEAN CORPUSCULAR HGB CONC 34 g/dL (33-37); MEAN CORPUSCULAR VOLUME 89.9 fL (80-94); MONOCYTES # (AUTO) 0.8 K/uL (0.8-1.0); MONOCYTES % (AUTO) 5.2 % (1.7-9.3); NEUTROPHILS # (AUTO) 12.4 K/uL (1.8-7.7); NEUTROPHILS % (AUTO) 83.9 % (42.2-75.2); PLATELET COUNT (AUTO) 300 K/uL (140-450); RED BLOOD CELL COUNT(AUTO) 4.56 MIL/uL (4.20-6.10); RED CELL DISTRIBUTION WIDTH 13.9 % (11.6-13.7); WHITE BLOOD COUNT (AUTO) 14.8 K/uL (4.8-10.8)
--- NOTE | 2020-01-27 07:20 | NUR ---
RECEIVED REPORT FROM EPIDEMIOLOGY INTERNSHIP NURSE. PT IS IN BED. AOX2, NO C/O PAIN, NO SOB, RESPIRATIONS ARE EVEN AND UNLABORED. SKIN IS INTACT. IV SITE RH 22G AT NS 60CC/HR. SAFETY PRECAUTIONS IN PLACE. ISOLATION PRECAUTION OBSERVED. CALL LIGHT WITHIN REACH. WILL CONTINUE TO MONITOR.
--- NOTE | 2020-01-27 07:28 | NUR ---
PT IN STABLE CONDITION. ENDORSED PT TO DAY SHIFT NURSE FOR CONTINUOUS CARE.
[2020-01-27 07:51] LABS: ALBUMIN 2.2 g/dL (3.4-5.0); ANION GAP 16.1 (8-16); ASPARTATE AMINOTRANSFERASE 100 U/L (15-37); CARBON DIOXIDE 20.7 mmol/L (21-32); CHLORIDE 103 mmol/L (98-107); CREATININE 1.6 mg/dL (0.6-1.3); GLUCOSE 122 mg/dL (74-106); LACTATE DEHYDROGENASE 179 U/L (85-227); POTASSIUM 4.8 mmol/L (3.5-5.1); SODIUM SERUM 135 mmol/L (136-145); TOTAL BILIRUBIN 0.2 mg/dL (0.0-1.0); UREA NITROGEN, BLOOD 37 mg/dL (7-18)
[2020-01-27 08:00] VITALS: BP 153/71
[2020-01-27] MEDS: LOSARTAN 50 MG TAB PO SCH (09:00)
[2020-01-27] MEDS: POTASSIUM CHLORIDE 10 MEQ TABER PO SCH (09:00)
[2020-01-27] MEDS: TAMSULOSIN 0.4 MG CAP PO SCH (09:00)
[2020-01-27] MEDS: DEXAMETHASONE 4 MG/ML VIAL IVP SCH (09:00)
[2020-01-27] MEDS: FUROSEMIDE 20 MG TAB PO SCH (09:00)
[2020-01-27] MEDS: VITAMIN D 400 IU TAB PO SCH (09:00)
[2020-01-27] MEDS: ASCORBIC ACID 500 MG TAB PO SCH (09:00)
[2020-01-27] MEDS: ZINC SULF 220 MG CAP PO SCH (09:00)
[2020-01-27] MEDS: amLODIPine 5 MG TAB PO SCH (09:00)
[2020-01-27] MEDS: OSELTAMIVIR PHOSPHATE 30 MG CAP PO SCH (09:00)
--- NOTE | 2020-01-27 09:40 | NUR ---
DUE MORNING MEDS GIVEN. TOLERATED WELL
--- NOTE | 2020-01-27 11:00 | NUR ---
GAVE REPORT TO JOSÉ RAMIREZ FROM [facility]. DISCHARGE INSTRUCTIONS AND PRESCRIPTION GIVEN.
== END 2020-01-27 13:30 | DRG 871 ==
LOC: MED 15:45 → EEVIPCON 18:27 → MTU 18:27
PROVIDERS: ADMIT General Practice; ATTEND General Practice
DX: A41.9 Sepsis, unspecified organism (principal); U07.1 COVID-19; N17.0 Acute kidney failure with tubular necrosis; J10.08 Influenza due to other identified influenza virus with other specified pneumonia; J12.89 Other viral pneumonia; J96.20 Acute and chronic respiratory failure, unspecified whether with hypoxia or hypercapnia; N39.0 Urinary tract infection, site not specified; I69.354 Hemiplegia and hemiparesis following cerebral infarction affecting left non-dominant side; G91.9 Hydrocephalus, unspecified; E87.1 Hypo-osmolality and hyponatremia; E46 Unspecified protein-calorie malnutrition; E78.00 Pure hypercholesterolemia, unspecified; E78.5 Hyperlipidemia, unspecified; E83.39 Other disorders of phosphorus metabolism; I12.9 Hypertensive chronic kidney disease with stage 1 through stage 4 chronic kidney disease, or unspecified chronic kidney disease; N18.9 Chronic kidney disease, unspecified; N40.0 Benign prostatic hyperplasia without lower urinary tract symptoms; Z78.9 Other specified health status; Z98.2 Presence of cerebrospinal fluid drainage device; Z68.27 Body mass index [BMI] 27.0-27.9, adult
CPT/HCPCS: 36415; 36600; 71045; 80048; 80053; 81001; 82550; 82728; 82803; 83036; 83605; 83615; 83735; 83880; 84100; 84443; 84484; 85025; 85379; 85384; 85610; 85651; 85730; 86140; 87040; 87081; 87086; 87186; 87420; 87804; 93005; 97110; 97112; 97116; 97530; 99285; J0696; J1100; J1644; J3475; J7030; J7060; Q0092; U0003-CS